=== PATIENT | female | born 1985 | race Two or more races ===

== ENCOUNTER 2025-05-09 19:03 | Emergency (ER) | payer OTHER ==
[~2025-05-09] VITALS: Ht 160 cm; Wt 108.3 kg
--- NOTE | 2025-05-09 19:27 | ED.PDOC ---
SOB-HPI HPI Comments 40 y/o F, presents to the ED for CC of shortness of breath. Patient states, she has been experiencing worsening shortness of breath x1week. Patient reports, shortness of breath to worsen with ambulation feeling "winded" with just a few steps. Patient relays, to have recently started Pradaxa for a DVT in her right lower extremity x1week ago. Patient denies chest pain, fever, chills, or cough. No other symptoms or modifying factors are present at this time. 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: Denies all PATHOLOGY ASSISTANT Hx Family History Family History: Family hx of DM, Family hx of heart mike Social History Smoker: Non-Smoker Alcohol: Rarely Drugs: Denies Drug Use Lives In: Home Constitutional: denies: chills, diaphoresis, fatigue, fever, malaise, sweats, weakness, others EENTM: denies: blurred vision, double vision, ear bleeding, ear discharge, ear drainage, ear pain, ear ringing, eye pain, eye redness, hearing loss, mouth pain, mouth swelling, nasal discharge, nose bleeding, nose congestion, nose pain, photophobia, tearing, throat pain, throat swelling, voice changes, others Respiratory: reports: shortness of breath; denies: cough, hemoptysis, orthopnea, SOB at rest, SOB with excertion, stridor, wheezing, others Cardiovascular: denies: chest pain, dizzy spells, diaphoresis, Dyspnea on exertion, edema, irregular heart beat, left arm pain, lightheadedness, pal pitations, PND, syncope, others Gastrointestinal: denies: abdomen distended, abdominal pain, blood streaked bowels, constipated, diarrhea, dysphagia, difficulty swallowing, hematemesis, melena, nausea, poor appetite, poor fluid intake, rectal bleeding, rectal pain, vomiting, others Genitourinary: denies: abnormal vagina bleeding, burning, dyspareunia, dysuria, flank pain, frequency, hematuria, incontinence, pain, , vagina discharge, urgency, others Neurological: denies: dizziness, fainting, headache, left sided numbness, left sided weakness, numbness, paresthesia, pre-existing deficit, right sided numbness, right sided weakness, seizure, speech problems, tingling, tremors, weakness, others Musculoskeletal: reports: others (right leg swelling); denies: back pain, gout, joint pain, joint swelling, muscle pain, muscle stiffness, neck pain Integumetry: denies: bruises, change in color, change in hair/nails, dryness, laceration, lesions, lumps, rash, wounds, others Allergic/Immunocompromised: denies: Difficulty Healing, Frequent Infections, Hives, Itching, others Hematologic/Lymphatic: denies: anemia, blood clots, easy bleeding, easy bruising, swollen glands, others Endocrine: denies: excessive hunger, excessive sweating, excessive thirst, excessive urination, flushing, intolerance to cold, intolerance to heat, une xplained weight gain, unexplained weight loss, others Psychiatric: denies: anxiety, bipolar disorder, depression, hopeless, panic disorder, schizophrenia, sleepless, suicidal, others All Other Systems: Reviewed and Negative Physical Exam General Appearance: Mild Distress, Obese HEENT: Normal ENT Inspection, Pharynx Normal, TMs Normal Neck: Full Range of Motion, Non-Tender, Normal, Normal Inspection Respiratory: Chest Non-Tender, Lungs Clear, No Accessory Muscle Use, No Respiratory Distress, Normal Breath Sounds Cardiovascular: No Edema, No JVD, No Murmur, No Gallop, Normal Peripheral Pulses, Regular Rate/Rhythm Breast Exam: Deferred Gastrointestinal: No Organomegaly, Non Tender, No Pulsatile Mass, Normal Bowel Sounds, Soft Genitalia: Deferred Pelvic: Deferred Rectal: Deferred Extremities: No calf tenderness, Normal capillary refill, Normal inspection, Normal range of motion, Non-tender, No pedal edema Musculoskeletal : Apperance: Normal Neurologic: Alert, tool and die designer II-XII nml as Tested, No Motor Deficits, Normal Affect, Normal Mood, No Sensory Deficits Cerebellar Function: Normal Reflexes: Normal Skin: Dry, Normal Color, Warm Lymphatic: No Adenopathy EKG EKG : Pulse Rate (adult): 83 [place]: Normal Cardiac Rhythm: NSR Block: None ST: Nonsp Was a procedure done? Was a procedure done?: No Differential Dx Differential Diagnosis: Pulmonary Embolism, Sinusitis, Pharyngitis, URI X-Ray, Labs, Meds, VS Vital Signs Date Time Temp Pulse Resp B/P (MAP) Pulse Ox O2 Delivery O2 Flow Rate FiO2 05/09/25 21:09 98.6 74 20 132/84 (100) 95 98.6 05/09/25 19:46 83 05/09/25 19:42 83 05/09/25 19:06 97.3 81 16 141/76 99 97.3 Lab Test 05/09/25 20:31 05/09/25 19:32 Range/Units Troponin I High Sensitivity < 3 L < 3 L </=34 ng/L B-Type Natriuretic Peptide Pending White Blood Count 12.5 H 4.4-10.8 10^3/uL Red Blood Count 4.84 4.0-5.20 10^6/uL Hemoglobin 14.4 12.2-16.2 g/dL Hematocrit 43.1 36.0-46.0 % Mean Corpuscular Volume 89.0 80.0-100.0 fL Mean Corpuscular Hemoglobin 29.8 28.0-32.0 pg Mean Corpuscular Hemoglobin Concent 33.5 32.0-36.0 g/dL Red Cell Distribution Width 13.4 11.8-14.3 % Platelet Count 268 140-450 10^3/uL Mean Platelet Volume 8.9 6.9-10.8 fL Neutrophils (%) (Auto) 69.1 37.0-80.0 % Lymphocytes (%) (Auto) 23.4 10.0-50.0 % Monocytes (%) (Auto) 5.7 0.0-12.0 % Eosinophils (%) (Auto) 1.2 0.0-7.0 % Basophils (%) (Auto) 0.6 0.0-2.0 % Neutrophils # (Auto) 8.6 1.6-8.6 10 ^3/uL Lymphocytes # (Auto) 2.9 0.4-5.4 10 ^3/uL Monocytes # (Auto) 0.7 0-1.3 10 ^3/uL Eosinophils # (Auto) 0.2 0-0.8 10 ^3/uL Basophils # (Auto) 0.1 0-0.2 10 ^3/uL Nucleated Red Blood Cells 0.3 % Sodium Level 138 136-145 mmol/L Potassium Level 3.7 3.5-5.1 mmol/L Chloride Level 103 98-107 mmol/L Carbon Dioxide Level 25 20-31 mmol/L Anion Gap 10 5-15 Blood Urea Nitrogen 8 L 9-23 mg/dL Creatinine 0.88 0.550-1.02 mg/dL Glomerular Filtration Rate Calc 84 >90 mL/min BUN/Creatinine Ratio 9.1 L 10.0-20.0 Serum Glucose 152 H 74-106 mg/dL Calcium Level 9.1 8.7-10.4 mg/dL IV Hep-Lock was established The patient is currently being signed out to Dr. Gastelum The CBC and chemistry panel are within normal limits The troponin level x2 is negative Images Reviewed?: Images reviewed and evaluated by me Time of 1ST Reevaluation: 19:50 Reevaluation 1ST: Unchanged Patient Education/Counseling: Diagnosis, Treatment, Prognosis Family Education/Counseling: No Family Present SEPSIS Sepsis Screen Date sepsis recognized/suspect: May 09, 2025 Time Sepsis recognized/suspect: 1909 Recent Procedure: No On Antibiotic Therapy: No Respiratory Rate >20: No Heart Rate >90: No Temp<36 C (96.8 F) or >38.3 C: No SBP <90 or MAP <65 mmHG: No New Acute Mental Status Change: No Is the patient on CPAP, BIPAP,: No Physician Orders B-Type Natriuretic Peptide (05/09/25 19:23) Heplock Iv (05/09/25 19:23) Ct Angio Chest Contrast (05/09/25 19:23) Electrocardigram (05/09/25 19:25) Electrocardigram (05/09/25 20:25) Electrocardigram (05/09/25 22:25) Vital Signs Date Time Temp Pulse Resp B/P (MAP) Pulse Ox O2 Delivery O2 Flow Rate FiO2 05/09/25 21:09 98.6 74 20 132/84 (100) 95 98.6 05/09/25 19:46 83 05/09/25 19:42 83 05/09/25 19:06 97.3 81 16 141/76 99 97.3 Laboratory Tests Test 05/09/25 19:32 White Blood Count 12.5 10^3/uL (4.4-10.8) H Departure 1 Departure Time of Disposition: 21:44 Impression: Primary Impression: Dyspnea Qualified Codes: R06.00 - Dyspnea, unspecified Additional Impression: Right leg DVT Qualified Codes: I82.401 - Acute embolism and thrombosis of unspecified deep veins of right lower extremity Disposition: 30 STILL A PATIENT Condition: Fair Critical Care Note Critical Care Time?: Yes (35 min-critical care time only) Stability Stability form required: No Heart Score Heart Score: Heart Score Response (Comments) Value History N/A 0 EKG N/A 0 Age N/A 0 Risk Factors N/A 0 Troponin N/A 0 Total 0 I personally scribed for LAURENCE SILVA MD ([email or web address]) on 05/09/25 at 19:27. Electronically submitted by Manasa Perez [email or web address]). LAURENCE SILVA MD May 09, 2025 19:27
[2025-05-09 19:46] LABS: Hematocrit 43.1 % (36.0-46.0); Hemoglobin 14.4 g/dL (12.2-16.2); Mean Corpuscular Hemoglobin 29.8 pg (28.0-32.0); Mean Corpuscular Volume 89.0 fL (80.0-100.0); Nucleated Red Blood Cells % 0.3 %
[2025-05-09 19:51] LABS: Chloride 103 mmol/L (98-107); Potassium 3.7 mmol/L (3.5-5.1); Sodium 138 mmol/L (136-145)
[2025-05-09 19:52] LABS: Anion Gap 10 (5-15); Carbon Dioxide 25 mmol/L (20-31)
[2025-05-09 19:53] LABS: Calcium 9.1 mg/dL (8.7-10.4)
[2025-05-09 19:57] LABS: BUN/Creatinine Ratio 9.1 (10.0-20.0)
[2025-05-09 20:04] LABS: Blood Urea Nitrogen 8 mg/dL (9-23); Glucose 152 mg/dL (74-106)
[2025-05-09] MEDS: IOHEXOL 350 MG/ML 100ML IJ ONE (21:14)
--- NOTE | 2025-05-09 22:22 | DVH ---
CLINICAL HISTORY: sob TECHNIQUE: CT Angiogram of the chest was performed with with intravenous contrast. 3D MIP reconstructed images were created and archived on the PACS system. This exam was performed according to our departmental dose optimization program. Up-to-date CT equipment and radiation dose reduction techniques are utilized as appropriate. WID: COMPARISON: None FINDINGS: Lungs: Clear. Cardiac: unremarkable Vascular: unremarkable. No pulmonary emboli. Lymph nodes: unremarkable Thoracic inlet: unremarkable Bones: unremarkable Upper Abdomen: Several cystic lesions within the spleen, for example a 3.3 cm inferior and 2.3 cm mid pole cystic lesion within the spleen. Small hiatal hernia. IMPRESSION: No pulmonary emboli No acute intrathoracic findings Several cystic lesion within the spleen measuring up to 3.3 cm of unknown etiology.. Cystic lesions are typically benign within the spleen; however, consider MRI of the abdomen with contrast in the nonemergent setting for additional evaluation.
--- NOTE | 2025-05-09 23:48 | ED.PDOC ---
X-Ray, Labs, Meds, VS Vital Signs Date Time Temp Pulse Resp B/P (MAP) Pulse Ox O2 Delivery O2 Flow Rate FiO2 05/09/25 21:53 16 95 Room Air* 0 21 21 05/09/25 21:09 98.6 74 20 132/84 (100) 95 98.6 05/09/25 19:46 83 05/09/25 19:42 83 05/09/25 19:06 97.3 81 16 141/76 99 97.3 Lab Test 05/09/25 20:31 05/09/25 19:32 Range/Units Troponin I High Sensitivity < 3 L < 3 L </=34 ng/L B-Type Natriuretic Peptide 11.05 0-100 pg/mL White Blood Count 12.5 H 4.4-10.8 10^3/uL Red Blood Count 4.84 4.0-5.20 10^6/uL Hemoglobin 14.4 12.2-16.2 g/dL Hematocrit 43.1 36.0-46.0 % Mean Corpuscular Volume 89.0 80.0-100.0 fL Mean Corpuscular Hemoglobin 29.8 28.0-32.0 pg Mean Corpuscular Hemoglobin Concent 33.5 32.0-36.0 g/dL Red Cell Distribution Width 13.4 11.8-14.3 % Platelet Count 268 140-450 10^3/uL Mean Platelet Volume 8.9 6.9-10.8 fL Neutrophils (%) (Auto) 69.1 37.0-80.0 % Lymphocytes (%) (Auto) 23.4 10.0-50.0 % Monocytes (%) (Auto) 5.7 0.0-12.0 % Eosinophils (%) (Auto) 1.2 0.0-7.0 % Basophils (%) (Auto) 0.6 0.0-2.0 % Neutrophils # (Auto) 8.6 1.6-8.6 10 ^3/uL Lymphocytes # (Auto) 2.9 0.4-5.4 10 ^3/uL Monocytes # (Auto) 0.7 0-1.3 10 ^3/uL Eosinophils # (Auto) 0.2 0-0.8 10 ^3/uL Basophils # (Auto) 0.1 0-0.2 10 ^3/uL Nucleated Red Blood Cells 0.3 % Sodium Level 138 136-145 mmol/L Potassium Level 3.7 3.5-5.1 mmol/L Chloride Level 103 98-107 mmol/L Carbon Dioxide Level 25 20-31 mmol/L Anion Gap 10 5-15 Blood Urea Nitrogen 8 L 9-23 mg/dL Creatinine 0.88 0.550-1.02 mg/dL Glomerular Filtration Rate Calc 84 >90 mL/min BUN/Creatinine Ratio 9.1 L 10.0-20.0 Serum Glucose 152 H 74-106 mg/dL Calcium Level 9.1 8.7-10.4 mg/dL [place] [id number] Ph: [phone] DIAGNOSTIC IMAGING Diagnostic Imaging Report : [id number] Signed PATIENT: JOCELIN ANDERSON ACCT: [id number] UNIT: [id number] : 1985 LOC: ER ROOM / BED: / AGE / SEX: 40 / F ADM STATUS: REG ER SERVICE 22 ORDERING PHYSICIAN: LAURENCE SILVA MD PROCEDURE(s): CTACH - CT ANGIO CHEST CONTRAST REASON: sob ORDER NUMBER(s): [id number], ACCESSION NUMBER(s): [id number] CLINICAL HISTORY: sob TECHNIQUE: CT Angiogram of the chest was performed with with intravenous contrast. 3D MIP reconstructed images were created and archived on the PACS system. This exam was performed according to our departmental dose optimization program. Up-to-date CT equipment and radiation dose reduction techniques are utilized as appropriate. WID: COMPARISON: None FINDINGS: Lungs: Clear. Cardiac: unremarkable Vascular: unremarkable. No pulmonary emboli. Lymph nodes: unremarkable Thoracic inlet: unremarkable Bones: unremarkable Upper Abdomen: Several cystic lesions within the spleen, for example a 3.3 cm inferior and 2.3 cm mid pole cystic lesion within the spleen. Small hiatal hernia. IMPRESSION: No pulmonary emboli No acute intrathoracic findings Several cystic lesion within the spleen measuring up to 3.3 cm of unknown etiology.. Cystic lesions are typically benign within the spleen; however, consider MRI of the abdomen with contrast in the nonemergent setting for additional evaluation. ATED BY: CHERYL GALLARDO MD DICTATED DATE/TIME: 05/09/252221 SIGNED BY: CHERYL GALLARDO MD SIGNED DATE/TIME: 05/09/252221 CC: Time of 1ST Reevaluation: 21:44 Reevaluation 1ST: Unchanged Time of 2ND Reevaluation: 23:47 Reevaluation 2ND: Improved Patient Education/Counseling: Need For Follow Up Family Education/Counseling: Need For Follow Up Change of Shift?: Yes (Sign-out received from Dr. Silva at 10:00 p.m.) Departure 1 Departure Time of Disposition: 21:44 Impression: Primary Impression: Dyspnea Qualified Codes: R06.00 - Dyspnea, unspecified Additional Impressions: Right leg DVT Qualified Codes: I82.401 - Acute embolism and thrombosis of unspecified deep veins of right lower extremity Bronchitis Cyst of spleen Disposition: 01 HOME / SELF CARE / HOMELESS Condition: Stable Additional Instructions: ED DISCHARGE INSTRUCTIONS Instructions: Please read all instructions provided in this packet carefully. Although you have been discharged from the Emergency Department, this does not mean that you have a "clean bill of health". No definitive diagnosis for your symptoms has been made today. It is possible that you are in the process of developing a serious illness. This is why you must return to the ED without fail if any new or worsening symptoms (especially if your symptoms include chest pain, trouble breathing, abdominal pain, fever, headache, confusion, trouble seeing, or trouble walking) It is also very important that you see a primary care provider (PCP) within the next 3-5 days to follow up. If you are unable to get an appointment, return to the ED for re-evaluation. SHORTNESS OF BREATH EDUCATION Shortness of breath has many causes. Sometimes conditions such as anxiety can lead to shortness of breath. Some people get mild shortness of breath when they exercise. Trouble breathing also can be a symptom of a serious problem, such as asthma, lung disease, emphysema, heart problems, and pneumonia. If your shortness of breath continues, you may need tests and treatment. Watch for any changes in your breathing and other symptoms. Follow-up care is a chiu part of your treatment and safety. Be sure to make and go to all appointments, and call your doctor if you are having problems. It's also a good idea to know your test results and keep a list of the medicines you take. How can you care for yourself at home? Do not smoke or allow others to smoke around you. If you need help quitting, talk to your doctor about stop-smoking programs and medicines. These can increase your chances of quitting for good. Get plenty of rest and sleep. Take your medicines exactly as prescribed. Call your doctor if you think you are having a problem with your medicine. Find healthy ways to deal with stress. Exercise daily. Get plenty of sleep. Eat regularly and well. When should you call for help? Call 911 anytime you think you may need emergency care. For example, call if: You have severe shortness of breath. You have symptoms of a heart attack. These may include: Chest pain or pressure, or a strange feeling in the chest. Sweating. Shortness of breath. Nausea or vomiting. Pain, pressure, or a strange feeling in the back, neck, jaw, or upper belly or in one or both shoulders or arms. Lightheadedness or sudden weakness. A fast or irregular heartbeat. After you call 911, the teletray operator may tell you to chew 1 adult-strength or 2 to 4 low-dose aspirin. Wait for an ambulance. Do not try to drive yourself. Call your doctor now or seek immediate medical care if: Your shortness of breath gets worse or you start to wheeze. Wheezing is a high- pitched sound when you breathe. You wake up at night out of breath or have to prop your head up on several pillows to breathe. You are short of breath after only light activity or while at rest. Watch closely for changes in your health, and be sure to contact your doctor if: You do not get better over the next 1 to 2 days. Credits for Shortness of Breath: Care Instructions Current as of: December 21, 2023 Author: [employer] [address] [address] Ph: [phone] DIAGNOSTIC IMAGING Diagnostic Imaging Report : [id number] Signed PATIENT: JOCELIN ANDERSON ACCT: [id number] UNIT: [id number] : 1985 LOC: ER ROOM / BED: / AGE / SEX: 40 / F ADM STATUS: REG ER SERVICE 22 ORDERING PHYSICIAN: LAURENCE SILVA MD PROCEDURE(s): CTACH - CT ANGIO CHEST CONTRAST REASON: sob ORDER NUMBER(s): [id number], ACCESSION NUMBER(s): [id number] CLINICAL HISTORY: sob TECHNIQUE: CT Angiogram of the chest was performed with with intravenous contrast. 3D MIP reconstructed images were created and archived on the PACS system. This exam was performed according to our departmental dose optimization program. Up-to-date CT equipment and radiation dose reduction techniques are utilized as appropriate. WID: COMPARISON: None FINDINGS: Lungs: Clear. Cardiac: unremarkable Vascular: unremarkable. No pulmonary emboli. Lymph nodes: unremarkable Thoracic inlet: unremarkable Bones: unremarkable Upper Abdomen: Several cystic lesions within the spleen, for example a 3.3 cm inferior and 2.3 cm mid pole cystic lesion within the spleen. Small hiatal hernia. IMPRESSION: No pulmonary emboli No acute intrathoracic findings Several cystic lesion within the spleen measuring up to 3.3 cm of unknown etiology.. Cystic lesions are typically benign within the spleen; however, consider MRI of the abdomen with contrast in the nonemergent setting for additional evaluation. ATED BY: CHERYL GALLARDO MD DICTATED DATE/TIME: 05/09/252221 SIGNED BY: CHERYL GALLARDO MD SIGNED DATE/TIME: 05/09/252221 CC: e-Prescriptions Albuterol Sulfate (VENTOLIN MDI) 90 Mcg Ih 90 MCG IN Q6HPRN PRN for 5 Days, #1 INH Prov: DAVID PERLA MD 05/09/25 Azithromycin (Zithromax Z-Kaleb) 250 Mg Tab 250 MG PO DAILY for 5 Days, #5 TAB Prov: DAVID PERLA MD 05/09/25 Comments Discussed with the patient CT findings of cystic lesions on spleen importance of follow up with the primary care provider for further evaluation. Patient re-evaluated prior to discharge. She is not hypoxic, no respiratory distress. She is felt stable for discharge home to follow up with primary care provider DAVID PERLA MD May 09, 2025 23:48
[2025-05-09] MEDS ORDERED: AZITTAB PO (23:55)
[2025-05-09] MEDS ORDERED: ALBUAER3 IN (23:55)
[2025-05-10 00:11] VITALS: BP 124/84; PULSE 72; RESP 18; TEMP 98.3; O2SAT 96
--- NOTE | 2025-05-10 01:19 | ECG ---
[facility] Test Date: 2025-05-09 Test Time: 19:42:40 Pat Name: JOCELIN ANDERSON Department: ED Room: Gender: F Clipping Marker: SHAQ : 1985 Requested By: LAURENCE SILVA Order Number: [id number] Reading MD: Raymundo Tinoco Measurements Intervals [place] Rate: 83 P: 38 CA: 143 QRS: 10 QRSD: 91 T: 38 QT: 380 QTc: 447 Interpretive Statements Sinus rhythm Electronically Signed On 05-13-2025 15:21:34 PST by Raymundo Tinoco Please click the below link to view image of tracing.
== END 2025-05-10 00:14 | disposition home or self-care (01) ==
LOC: ER 19:03
DX: R06.00 Dyspnea, unspecified (principal); I82.401 Acute embolism and thrombosis of unspecified deep veins of right lower extremity; Z86.718 Personal history of other venous thrombosis and embolism
CPT/HCPCS: 36415; 71275; 80048; 83880; 84484; 85025; 93005; 99285; Q9967; 99291